=== PATIENT | male | born 1980 | race Caucasian/White ===

== ENCOUNTER 2022-10-19 08:34 | Outpatient (CLI) | payer BC, SELFPAY ==
[2022-10-19 08:51] LABS: Hematocrit 45.3 % (42.0-52.0); Hemoglobin 15.4 g/dL (14.0-18.0); Mean Corpuscular Volume 91.1 fl (80-100); Mean Platelet Volume 9.8 fl (7.4-10.4); Platelet Count Result 212 k/mm3 (150-375); Red Blood Count 4.97 M/mm3 (4.6-6.20); Red Cell Distribution Width 12.1 % (11.5-14.5); White Blood Count 4.8 K/mm3 (4.5-10.0)
[2022-10-19 08:58] LABS: Appearance Urine Clear (Clear); Bacteria Urine None Seen /hpf; Bilirubin Urine Negative (Negative); Blood Urine Negative (Negative); Color Urine Yellow (Yellow); Glucose Urine UA Negative (Negative); Ketones Urine Negative (Negative); Leukocyte Esterase Ur Trace LEU/UL (NEGATIVE); Nitrate Urine Negative (Negative); Non Pathogenic Casts 0-2; Protein Urine Negative (Negative); RBC Urine 0-2 /hpf (0-2); Specific Grav Ur 1.013 (1.001-1.035); Squamous Epithelial Cell Urine None seen /hpf (Few); Urobilinogen Urine 0.2 mg/dL (<2.0); WBC Urine 0-5 /hpf (0-3); pH Urine 5.5 (5.0-9.0)
[2022-10-19 09:02] LABS: Add Urine Microscopic? YES
[2022-10-19 09:10] LABS: Alanine Aminotransferase 45 U/L (6-50); Albumin Level 4.6 g/dL (3.5-5.1); Alkaline Phosphatase 75 U/L (38-126); Anion Gap 6 mmol/L (8-16); Aspartate Amino Transferase 38 U/L (17-59); Bilirubin,Total 0.6 mg/dL (0.2-1.3); Blood Urea Nitrogen 13 mg/dL (9-20); Calcium 9.2 mg/dL (8.4-10.2); Carbon Dioxide 30 mmol/L (22-30); Chloride 101 mmol/L (98-107); Cholesterol 243 mg/dL (0-200); Estimated Glomerular Filt Rate > 60; Glucose 109 mg/dL (65-110); HDL Direct 46 mg/dL; Potassium 4.1 mmol/L (3.4-5.0); Sodium 137 mmol/L (137-145); Triglycerides 134 mg/dL (<150)
[2022-10-19 09:21] LABS: LDL Cholesterol Direct 155 mg/dL
== END 2022-10-19 08:35 | disposition home or self-care (01) ==
LOC: ANHLAB 08:35
PROVIDERS: PCP Family Medicine; Visit Provider Physician Assistant
DX: Z00.00 Encounter for general adult medical examination without abnormal findings (principal); R35.89 Other polyuria
CPT/HCPCS: 36415; 80053; 80061; 81001; 83036; 84443; 85027

== ENCOUNTER → 2023-01-11 09:44 | Outpatient (CLI) | payer BC, SELFPAY ==
--- NOTE | ~2023-01-11 | CT_ITS ---
EXAMINATION: CT brain & sinus wo con INDICATION: Headaches, chronic sinusitis COMPARISON: None TECHNIQUE: Standard unenhanced head CT and paranasal sinuses was performed without intravenous contra st. The dose-length product (DLP) was 674.51 mGy-cm. The mA was adjusted according to patient size. I terative reconstruction technique was employed. FINDINGS: CT brain: No intracranial hemorrhage, acute infarction, or abnormal mass lesion. The ventricles are n ormal. No abnormal mass effect or midline shift. The shirley-white matter differentiation is normal. The basal cisterns are patent. The orbits are normal. CT sinuses: There is normal development and pneumatization of the paranasal sinuses. There is mild mu cosal thickening inferiorly in the right maxillary sinus. The frontal, sphenoid, ethmoid, and left ma xillary sinuses are clear. The bilateral ostiomeatal complexes are patent. Visualized soft tissues ar e unremarkable. IMPRESSION: 1. No acute intracranial abnormality. 2. Mild mucosal thickening of the right maxillary sinus. Reviewed, dictated and finalized at location B. K BAKER
== END ==
PROVIDERS: PCP Physician Assistant; Visit Provider Physician Assistant
DX: J32.0 Chronic maxillary sinusitis (principal)
CPT/HCPCS: 70450; 70486

== ENCOUNTER → 2023-01-24 08:30 | Outpatient (CLI) | payer BC, SELFPAY ==
--- NOTE | ~2023-01-24 | CT_ITS ---
EXAMINATION: CTA brain DATE: 01/24/2023 08:58 INDICATION: Ocular pain, left side. TECHNIQUE: Computed tomographic angiography (CTA) of the head was performed without and with 100 mL O mnipaque-350 intravenous contrast. Automated exposure control and iterative reconstruction technique were employed. The dose-length product was 1278.94 mGy-cm. Maximum intensity projection 3D reconstru ctions were created. Volume-rendered 3D reconstructions of the intracranial arteries were created by the technologist on a separate workstation. COMPARISON: Head CT 01/11/2023 FINDINGS: There is no intracranial hemorrhage, acute infarction, or abnormal intracranial mass lesion . There is an arachnoid cyst in right cerebellopontine angle. The ventricles are normal in size. Ther e is mild mucosal thickening in the paranasal sinuses. The orbits are normal. The mastoid air cells a re normal. The vertebral arteries are codominant. There is no significant stenosis of basilar artery or the posterior cerebral arteries. There is no significant stenosis of intracranial internal carotid arteries or anterior or middle cerebral arteries. There is no aneurysm. Anterior communicating arter y is normal. The posterior communicating arteries are normal. IMPRESSION: 1. No etiology for the patient's symptoms. 2. No aneurysm or significant intracranial arterial stenosis. Reviewed, dictated and finalized at location E. MINOUS DISTRIBUTOR OPERATOR
== END ==
PROVIDERS: PCP Otolaryngology; Visit Provider Otolaryngology
DX: J20.9 Acute bronchitis, unspecified (principal); H93.A9 Pulsatile tinnitus, unspecified ear; H57.10 Ocular pain, unspecified eye
CPT/HCPCS: 70496; Q9967

== ENCOUNTER 2024-06-07 08:49 | Outpatient (CLI) | payer OTHER, SELFPAY ==
--- OUTSIDE RECORDS SUMMARY | 2024-06-07 08:59 | XMS_ITS | Referral Summary ---
Author Organization [facility] [place] [address] Address [address] [place] [address] Care Team Providers Care Clerk Cashier Name Role Phone Tal Pulido MD Primary Care Provider Social History Tobacco Use Types Packs/Day Years Used Date Smoking Tobacco: Never Assessed Personal Safety Answer Date Recorded Getting School Help Needed Not on file 05/20 Sex and Gender Information Value Date Recorded Sex Assigned at Not on file Legal Sex Male 12:19 AM PHARMACY RESIDENT Gender Identity Not on file Sexual Orientation Not on file Plan of Treatment Not on file Insurance [facility] Care Teams Clerk Cashier Relationship Specialty Start Date End Date Tal Pulido MD [address] [place] [address] PCP - General Family Medicine 12/14/18
--- OUTSIDE RECORDS SUMMARY | 2024-06-07 08:59 | XMS_ITS | Continuity of Care Document ---
Author Name [facility] Organization [facility] Care Team Providers Care Patient Care Representative Name Role Phone [facility] Unavailable Unavailable Encounters Combined list of: 1) Encounters from Department of Veterans Affairs facilities going backup to the last 18 months, not all VA inpatient encounters are included; 2) Encounters from the Department of Defense facilities going backup to 280 months. Location Location Details Encounter Type Encounter Number Reason For Visit Attending Provider ADM Date DC Date Status Disposition Source [facility] Outpatient Encounter [id number] 05/10 [facility]
--- OUTSIDE RECORDS SUMMARY | 2024-06-07 08:59 | XMS_ITS | Clinical Summary ---
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
[2024-06-07 10:37] LABS: Add Urine Microscopic? NO; Appearance Urine Clear (Clear); Bilirubin Urine Negative (Negative); Blood Urine Negative (Negative); Color Urine Yellow (Yellow); Glucose Urine UA Negative (Negative); Ketones Urine Negative (Negative); Leukocyte Esterase Ur Negative LEU/UL (Negative); Nitrate Urine Negative (Negative); Protein Urine Negative (Negative); Specific Grav Ur 1.019 (1.001-1.035); Urobilinogen Urine 0.2 mg/dL (<2.0)
[2024-06-07 10:39] LABS: Basophils Percent Auto 0.4 % (0.2-1.2); Eosinophils Absolute Auto 0.2 K/mm3 (0-0.3); Eosinophils Percent Auto 2.2 % (0-4.4); Hematocrit 49.7 % (42.0-52.0); Hemoglobin 16.5 g/dL (14.0-18.0); Immature Granulocyte Absolute 0.03 K/mm3 (0.00-0.031); Immature Granulocyte Percent A 0.4 % (0-0.5); Lymphocytes Absolute Auto 2.29 K/mm3 (0.9-3.2); Lymphocytes Percent Auto 33.6 % (18.3-44.2); Mean Corpuscular HGB Conc 33.2 g/dl (32-36); Mean Corpuscular Volume 90.4 fl (80-100); Monocytes Absolute Auto 0.5 K/mm3 (0.1-0.6); Monocytes Percent Auto 7.8 % (2.6-8.5); Neutrophils Absolute Auto 3.8 K/mm3 (1.3-6.7); Neutrophils Percent Auto 55.6 % (45.5-73.1); Platelet Count Result 276 k/mm3 (150-375); Red Cell Distribution Width 12.2 % (11.5-14.5); White Blood Count 6.8 K/mm3 (4.5-10.0)
[2024-06-07 10:55] LABS: Alanine Aminotransferase 49 U/L (6-50); Albumin Level 4.8 g/dL (3.5-5.1); Alkaline Phosphatase 84 U/L (38-126); Anion Gap 9 mmol/L (4-12); Aspartate Amino Transferase 36 U/L (17-59); Bilirubin,Total 0.7 mg/dL (0.2-1.3); Blood Urea Nitrogen 13 mg/dL (9-20); CRP 0.6 mg/dL (<1.0); Calcium 9.4 mg/dL (8.4-10.2); Carbon Dioxide 31 mmol/L (22-30); Chloride 99 mmol/L (98-107); Cholesterol 236 mg/dL (0-200); Estimated Glomerular Filt Rate > 60; Glucose 85 mg/dL (65-110); HDL Direct 49 mg/dL; Sodium 139 mmol/L (137-145); Triglycerides 113 mg/dL (<150)
[2024-06-07 11:03] LABS: LDL Cholesterol Direct 147 mg/dL
[2024-06-07 11:33] LABS: Erythrocyte Sedimentation Rate 4 mm/hr (0-20)
[2024-06-07 11:58] LABS: Folic Acid 18.3 ng/mL (2.76->20)
[2024-06-07 12:03] LABS: Hemoglobin A1C 5.2 % (<5.7)
[2024-06-10 22:38] LABS: S cerevisiae Ab (IgA) 6.7 U (<=20.0); S cerevisiae Ab (IgG) 12.3 U (<=20.0)
[2024-06-13 22:04] LABS: ANCA Screen Negative (Negative); Myeloperoxidase Ab <1.0 AI (<1.0); Proteinase-3 Ab <1.0 AI (<1.0)
== END 2024-06-07 08:50 | disposition home or self-care (01) ==
LOC: ANHLAB 08:50
PROVIDERS: PCP Family Medicine; Visit Provider Physician Assistant
DX: K62.5 Hemorrhage of anus and rectum (principal); R53.83 Other fatigue; L85.3 Xerosis cutis; R21 Rash and other nonspecific skin eruption; K13.79 Other lesions of oral mucosa; R19.4 Change in bowel habit; Z00.00 Encounter for general adult medical examination without abnormal findings
CPT/HCPCS: 36415; 80053; 80061; 81003; 82607; 82746; 83036; 85025; 85652; 86036; 86140; 86671

== ENCOUNTER 2024-06-08 09:23 | Outpatient (CLI) | payer OTHER, SELFPAY ==
--- OUTSIDE RECORDS SUMMARY | 2024-06-08 09:31 | XMS_ITS | Continuity of Care Document ---
Author Name [facility] Organization [facility] Care Team Providers Care Gymnastics Coach Or Instructor Name Role Phone [facility] Unavailable Unavailable Encounters [...] ADM Date DC Date Status Disposition Source [facility] Outpatient Encounter [id number] 05/10 [facility] [place] [facility]
--- OUTSIDE RECORDS SUMMARY | 2024-06-08 09:31 | XMS_ITS | Referral Summary ---
Author Organization [facility] [address] Address [address] [place] [address] Care Team Providers Care Ship Runner Name Role Phone Tal Pulido MD Primary Care Provider Social History Tobacco Use Types Packs/Day Years Used Date Smoking Tobacco: Never Assessed Personal Safety Answer Date Recorded Getting School Help Needed Not on file 05/20 Sex and Gender Information Value Date Recorded Sex Assigned at Not on file Legal Sex Male 12:19 AM HOSPITALITY COORDINATOR Gender Identity Not on file Sexual Orientation Not on file Plan of Treatment Not on file Insurance [facility] Care Teams Ship Runner Relationship Specialty Start Date End Date Tal Puildo MD [address] [facility] [address] [place] [address] PCP - General Family Medicine 12/14/18
--- OUTSIDE RECORDS SUMMARY | 2024-06-08 09:31 | XMS_ITS | Clinical Summary ---
Author Organization 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
[2024-06-08 10:03] LABS: Iron 69 ug/dL (49-181)
[2024-06-08 10:12] LABS: Percent Iron Saturation 20 % (20-50)
== END 2024-06-08 09:24 | disposition home or self-care (01) ==
PROVIDERS: PCP Family Medicine; Visit Provider Physician Assistant
DX: K62.5 Hemorrhage of anus and rectum (principal); R53.83 Other fatigue; L85.3 Xerosis cutis; R21 Rash and other nonspecific skin eruption; K13.79 Other lesions of oral mucosa
CPT/HCPCS: 36415; 82306; 82728; 83540; 83550

== ENCOUNTER 2024-07-03 00:26 | Day surgery (SDC) | payer OTHER, SELFPAY ==
[2024-06-25 10:09] VITALS: BMI 40.7
--- NOTE | 2024-07-02 14:35 | P.PNAN_ITS ---
Anes - Initial Pre Proc Eval Procedure: Operation Date: 07/03/24 11:00 Proposed Procedures p Colonoscopy - Varun Renner DO Date/Time: 07/02/24 14:35 Surgeon: Varun Renner DO Pre Op Diagnosis: Rectal bleeding & change in bowel habit Patient Data Age: 44 Gender: M Height: 1.83 m Weight: 136.2 kg Allergies Allergy/AdvReac Type Severity Reaction Status Date / Time No Known Allergies Allergy Mild Verified 07/03/24 10:05 Home Medications ?Medication ?Instructions ?Recorded ?Confirmed ?Type epinephrine 0.3 mg/0.3 mL 0.3 mg (0.3 mL) IM ONCE #2 ea 02/19/22 06/25/24 Rx injection, auto-injector (EpiPen 2-Dejuan) tirzepatide (weight loss) 2.5 2.5 mg (0.5 mL) subcut WEEKLY #2 mL 06/15/24 06/25/24 Rx mg/0.5 mL subcutaneous pen injector (Zepbound) Patient hx anesthesia problems: none Family hx anesthesia problems: none Results Review: All pre-operative results and documents have been reviewed as part of the pre- operative evaluation. [facility] Past Medical History Medical History Irregular heart beat Left hand fracture Tonsillectomy planned HLD (hyperlipidemia) Depression BRYANNA (obstructive sleep apnea) Surgical History Surgical History H/O adenoidectomy S/P arthroscopic reconstruction of ACL of right knee using quadriceps tendon autograft Family History Family History Mother Diabetes mellitus Depression Thyroid disorder Other Autism Social History Social History Smoking status: Never smoker Second hand tobacco smoke exposure: No Alcohol intake: never Alcohol use details: holidays Substance use: never Substance use type: does not use Lack of Transportation: No Lack of Food: Never True Current Housing: I Have Housing Concerned About Future Housing: No Difficulty Paying Gas/Electric Bills: No Difficulty Paying for Meds: No Currently Unemployed: No Education: Bachelor's Degree Difficulty w/ Childcare or Family Care: No Living arrangements: with family Occupation/Education: occupation Gender identity (if verbalized by the patient): Male Spiritual care concerns: No Anes - Eval Final PreProcedure Day of Procedure 07/02/24 14:35 Patient weight: morbidly obese Heart: regular rate and rhythm Lungs: clear to auscultation Airway: Mallampati scale class II Neurological: alert and oriented Last oral intake: >/= 8 hours ASA classification: III Emergent: no Anesthetic plan: proceed Anesthesia type and monitoring: general GIVS and standard monitoring Results Review: All pre-operative results and documents have been reviewed as part of the pre- operative evaluation. Informed Consent: The patient's anesthetic plan and its attendant risks and benefits were discussed with the patient/family/POA. Questions were solicited and answers provided to the satisfaction of the patient/family/POA.
--- OUTSIDE RECORDS SUMMARY | 2024-07-03 00:28 | XMS_ITS | Referral Summary ---
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 [address] [place] [address] PCP - General Family Medicine 12/14/18
--- OUTSIDE RECORDS SUMMARY | 2024-07-03 00:28 | XMS_ITS | Clinical Summary ---
Author Organization [facility] [address] Address [address] [place] [address] Care Team Providers Care Yard Inspector Name Role Phone Tal Pulido MD Primary Care Provider Social History Tobacco Use Types Packs/Day Years Used Date Smoking Tobacco: Never Assessed Personal Safety Answer Date Recorded Getting School Help Needed Not on file 05/20 Sex and Gender Information Value Date Recorded Sex Assigned at Not on file Legal Sex Male 12:19 AM CANTEEN MANAGER Gender Identity Not on file Sexual Orientation Not on file Plan of Treatment Not on file Insurance [facility] Care Teams Yard Inspector Relationship Specialty Start Date End Date Tal Pulido MD [address] [facility] [address] [place] [address] PCP - General Family Medicine 12/14/18
[2024-07-03 10:06] VITALS: BP 130/97; PULSE 103; RESP 18; TEMP 36.1; O2SAT 98
[2024-07-03] MEDS: LACTATED RINGERS 1,000 ML 150 ML IV CONT (10:14)
--- NOTE | 2024-07-03 10:36 | PM.IMHP ---
H&P: HPI History of Present Illness Date/Time: 07/03/24 10:36 Chief Complaint: rectal bleeding Narrative: this is a 44-year-old man who presents for colonoscopy. He has been experiencing rectal bleeding for about the past 6 months. He states that this is mixed with the stool. He denies any significant constipation or other changes in bowel habits. He has never had a colonoscopy before. He denies any first-degree relatives with history of colon cancer. Review of Systems Review of Systems: All systems reviewed & are unremarkable except as noted in HPI and below Constitutional: Constitutional: Denies chills, Denies fever(s), Denies headache(s) and Denies weight loss Eyes: Eyes: Denies change in vision ENT: Denies dizziness, Denies headache(s), Denies neck mass and Denies throat swelling Cardiovascular: Cardiovascular: Denies chest pain, Denies lightheadedness and Denies dyspnea Respiratory: Respiratory: Denies cough, Denies dyspnea and Denies wheezing Gastrointestinal: Gastrointestinal: Denies abdominal pain, Denies change in bowel habits, Denies nausea and Denies vomiting Genitourinary: Genitourinary: Denies hematuria and Denies dysuria Musculoskeletal: Musculoskeletal: Reports as per HPI Integumentary/Breasts: Skin/Breast: Reports as per HPI Neurologic: Denies dizziness and Denies headache(s) Allergic/Immunologic: Allergic/Immunologic: Denies throat swelling and Denies wheezing PMFSH Past Medical History Medical History Irregular heart beat Left hand fracture Tonsillectomy planned HLD (hyperlipidemia) Depression BRYANNA (obstructive sleep apnea) Surgical History Surgical History H/O adenoidectomy S/P arthroscopic reconstruction of ACL of right knee using quadriceps tendon autograft Family History Family History Mother Diabetes mellitus Depression Thyroid disorder Other Autism Social History Social History Smoking status: Never smoker Second hand tobacco smoke exposure: No Alcohol intake: never Alcohol use details: holidays Substance use: never Substance use type: does not use Lack of Transportation: No Lack of Food: Never True Current Housing: I Have Housing Concerned About Future Housing: No Difficulty Paying Gas/Electric Bills: No Difficulty Paying for Meds: No Currently Unemployed: No Education: Bachelor's Degree Difficulty w/ Childcare or Family Care: No Living arrangements: with family Occupation/Education: occupation Gender identity (if verbalized by the patient): Male Spiritual care concerns: No Meds Home Medications and Allergies Home Medications ?Medication ?Instructions ?Recorded ?Confirmed ?Type epinephrine 0.3 mg/0.3 mL 0.3 mg (0.3 mL) IM ONCE #2 ea 02/19/22 06/25/24 Rx injection, auto-injector (EpiPen 2-Dejuan) tirzepatide (weight loss) 2.5 2.5 mg (0.5 mL) subcut WEEKLY #2 mL 06/15/24 06/25/24 Rx mg/0.5 mL subcutaneous pen injector (Zepbound) Allergies Allergy/AdvReac Type Severity Reaction Status Date / Time No Known Allergies Allergy Mild Verified 07/03/24 10:05 Vital Signs Vital Signs - 24 hr 07/03/24 10:06 Temperature 97.0 F L Pulse Rate 103 H Respiratory Rate 18 Blood Pressure 130/97 H Pulse Oximetry 98 Oxygen Delivery Room Air Exam Const: General: no acute distress and alert Orientation/consciousness: patient oriented x3 HENMT: Head: normocephalic and atraumatic Ears: hearing grossly normal bilaterally Face/Nose/Sinus: Normal nares present Mouth: Yes Normal oral and palatal mucosa present Eyes: Periorbital: periorbital findings normal Sclera: sclerae normal EOM: EOMs intact bilaterally Neck: Neck: normal visual inspection, no lymphadenopathy and trachea midline Chest: Chest palpation & inspection: normal inspection of the chest Resp: Effort & Inspection: normal respiratory effort Auscultation: clear to auscultation bilaterally Cardio: Jugular venous distension: no JVD Rate: regular rate Rhythm: regular rhythm Heart sounds: S1 normal heart sound present and S2 normal heart sound present Peripheral pulses: Peripheral pulses 2+ throughout GI: Inspection: normal to inspection GI Palp: Yes Soft to palpation, No Tenderness to palpation present (GI), No Guarding due to palpation present (GI) and No Rebound tenderness present Percussion: Yes normal to percussion Auscultation: normal bowel sounds : General: Yes no CVA tenderness Back/Spine/Pelvis: Back: no CVA tenderness Neuro: General: patient oriented x3, no focal motor deficits and CN's II-XI intact bilaterally Cognition (Neuro): normal cognition Speech: normal speech Motor exam (neuro): 5/5 motor strength present throughout Extrem: General: capillary refill normal and no clubbing, cyanosis or edema Assessment and Plan Assessment and plan (1) Rectal bleeding: Code(s): K62.5 - Hemorrhage of anus and rectum Status: Acute Assessment and Plan: I have recommended colonoscopy. I have discussed the procedure, risks, benefits, and alternatives. Questions were answered. Patient is agreeable to proceed.
[2024-07-03 11:02] VITALS: BP 111/76; PULSE 116; RESP 24; O2SAT 99
[2024-07-03 11:12] VITALS: BP 121/84; PULSE 94; RESP 19; O2SAT 99
[2024-07-03 11:22] VITALS: BP 132/91; PULSE 89; RESP 21; O2SAT 97
== END 2024-07-03 11:28 | disposition home or self-care (01) ==
PROVIDERS: PCP Family Medicine; Visit Provider Surgery
PROC: 0DJD8ZZ Inspection of Lower Intestinal Tract, Via Natural or Artificial Opening Endoscopic (ICD-10-PCS; CPT 45378; principal; 2024-07-03 11:00)
DX: K63.5 Polyp of colon (principal); K64.8 Other hemorrhoids; K57.30 Diverticulosis of large intestine without perforation or abscess without bleeding; E78.5 Hyperlipidemia, unspecified; F32.A Depression, unspecified; G47.33 Obstructive sleep apnea (adult) (pediatric); I49.9 Cardiac arrhythmia, unspecified; E66.01 Morbid (severe) obesity due to excess calories; Z68.41 Body mass index [BMI] 40.0-44.9, adult; Z79.85 Long-term (current) use of injectable non-insulin antidiabetic drugs; Z98.890 Other specified postprocedural states
CPT/HCPCS: 45380; 88305; J2704; J7120